=== PATIENT | female | born 1985 | race Two or more races ===

== ENCOUNTER 2017-09-28 14:10 | Outpatient (CLI) | payer BC ==
[~2017-09-28] VITALS: Ht 157.5 cm; Wt 68.9 kg
[2017-09-28 14:25] VITALS: BP 98/63
[2017-09-28] MEDS ORDERED: COUMADIN6 MG ORAL (15:33)
--- NOTE | 2017-09-28 15:38 | GI Initial Consult Note ---
History of Present Illness General Date patient seen: Sep 28, 2017 Time patient seen: 15:31 Referring physician: [facility] Reason for Consultation: Pancreatic mass Present Illness HPI 32 year female found to have a pancreatic mass on recent imaging study presents today c/o of RLQ/Epigastric pain x 6 months with occasional nausea. In addition , c/o of constipation. Denies any unintentional weight loss or changes in dietary habits. No history of endoscopy / colonoscopy. Patient was on coumadin for PE, but dc one week ago. Home Meds Reported Medications Warfarin Sod* (COUMADIN*) 6 Mg Tablet, 6 MG ORAL DAILY, TAB 09/28/17 Med list reviewed/reconciled: Yes Allergies: Coded Allergies: No Known Allergies (Unverified , 09/28/17) Patient History History Provided By: Patient, Medical Record [facility] Narrative Pulmonary Embolism 2015 depression ?ITP Past Surgical History: lipoma left back breast augmentation x 4 Family History Narrative Mother >> DM, DVT Social History: Reports: other - caffeine use; Denies: smoking, alcohol use, drug use Review of Systems All Other Systems: limited Physical Exam T 98.1 BP 98/62 P 81 98 RA HT 5'2 WT 152 lbs Sp02 EP Interpretation: reviewed, normal General Appearance: well appearing, no apparent distress, alert Head: normocephalic EENT: PERRL/EOMI, normal ENT inspection Neck: supple Respiratory: normal breath sounds, no respiratory distress Cardiovascular: normal rate Gastrointestinal: normal inspection, non tender, soft, normal bowel sounds, non -distended Rectal: deferred Genitourinary: no CVA tenderness Musculoskeletal: normal inspection, back normal Neurologic: normal inspection, alert, oriented x3, responsive Psychiatric: normal inspection, judgement/insight normal, memory normal Skin: normal inspection, normal color, no rash, warm/dry, palpation normal, well hydrated Lymphatic: normal inspection, no adenopathy GI: Plan Problems: (1) Pancreatic mass (2) Depression (3) Constipation (4) Nausea (5) Lipoma (6) History of ITP Plan plan for EUS required to evaluate pancreatic mass, will require prior authorization rx for labs given to patient linzess [address] Do. Thank you for this patient referral. Kellie Sanchez N.P. Sep 28, 2017 15:38
== END 2017-09-28 14:45 | disposition home or self-care (01) ==
LOC: PAN 14:10
DX: R11.0 Nausea (principal); F32.9 Major depressive disorder, single episode, unspecified; K59.00 Constipation, unspecified; Z79.01 Long term (current) use of anticoagulants; Z86.711 Personal history of pulmonary embolism
CPT/HCPCS: 99201

== ENCOUNTER 2017-11-27 07:21 | Day surgery (SDC) | payer BC ==
[~2017-11-27] VITALS: Ht 157.5 cm; Wt 70.3 kg
[2017-11-27] VITALS (11 sets, daily range): BP systolic 103–125; BP diastolic 53–83
--- NOTE | 2017-11-27 06:25 | Anethesia Preoperative Eval ---
Anesthesia Pre-op PMH/ROS General Date of Evaluation: Nov 27, 2017 Time of Evaluation: 06:22 Anesthesiologist: mitul ASA Score: ASA 3 Mallampati Score Class I : Soft palate, uvula, fauces, pillars visible Class II: Soft palate, uvula, fauces visible Class III: Soft palate, base of uvula visible Class IV: Only hard plate visible Mallampati Classification: Class II Surgeon: nisa Diagnosis: pancreatic mass Surgical Procedure: eus Anesthesia History: none Social History: smoking - former smoker Family History: no anesthesia problems Allergies: Coded Allergies: ACETAMINOPHEN (Verified Adverse Reaction, Intermediate, vomiting, 11/27/17) HYDROCODONE (Verified Adverse Reaction, Intermediate, vomiting, 11/27/17) Medications: see eMAR Past Medical History Pulmonary: Reports: other - pulmonary embolism Neurologic/Psychiatric: Reports: depression/anxiety Hematology/Immune: Reports: other - hx/o ITP Musculoskeletal/Integumentary: Reports: other - lipoma Other: obesity PSxH Narrative: breast augmentation Anesthesia Pre-op Phys. Exam Physician Exam Constitutional: NAD Neurologic: CN 2-12 intact Cardiovascular: RRR Respiratory: CTA Gastrointestinal: S/NT/ND Airway Exam Mallampati Score: Class II MO: full Neck: supple TMD: 2fb ROM: full Teeth: intact Anesthesia Pre-op A/P Labs Labs Test 11/27/17 07:30 11/27/17 09:25 Urine HCG, Qualitative Negative (NEGATIVE) Risk Assessment & Plan Assessment: asa3 Plan: mac Status Change Before Surgery: No Pre-Antibiotics Drug: Marisela Lora MD Nov 27, 2017 06:25
[~2017-11-27 07:21] MED LIST: Atropine Inj 1mg/10ml Syr IV PRN; COUMADIN6 MG ORAL; DiphenhydrAMINE 50mg/ml Inj IVP PRN; Midazolam 2mg/2ml Inj IVP PRN; fentaNYL 100 mcg/2 mL IV PRN
[2017-11-27] MEDS ORDERED: Propofol 200mg/20ml IV ONE (07:22)
[2017-11-27] MEDS ORDERED: Lidocaine 1% MPF 10mg/ml 5ml ONE (07:22)
--- NOTE | 2017-11-27 08:25 | Pre-Procedure Note/Attestation ---
Pre-Procedure Note/Attestation Complete Prior to Procedure Planned Procedure: not applicable Procedure Narrative: eus Indications for Procedure Pre-Operative Diagnosis: pancreatic mass Attestation I attest that I discussed the nature of the procedure; its benefits; risks and complications; and alternatives (and the risks and benefits of such alternatives ), prior to the procedure, with the patient (or the patient's legal patient financial representative). I attest that, if there was a reasonable possibility of needing a blood transfusion, the patient (or the patient's legal patient financial representative) was given the [facility] standardized written summary, pursuant to the Silviano Tejinder Blood Safety Act ([place] Health and Safety Code # 1645, as amended). I attest that I re-evaluated the patient just prior to the surgery and that there has been no change in the patient's H&P, except as documented below: Julián Do MD Nov 27, 2017 08:25
--- NOTE | 2017-11-27 08:25 | Short Stay Surgery H&P ---
History of Present Illness History of Present Illness Chief Complaint see office consult notes HPI Ivonne Weiss is a 32 year old female who was admitted on for Pancreatic Mass Patient History Allergies: Coded Allergies: ACETAMINOPHEN (Verified Adverse Reaction, Intermediate, vomiting, 11/27/17) HYDROCODONE (Verified Adverse Reaction, Intermediate, vomiting, 11/27/17) Medication History Scheduled Warfarin Sod* (Coumadin*), 6 MG ORAL DAILY, (Reported) Physical Exam Vital Signs Last Vital Signs Date Time Temp Pulse Resp B/P (MAP) Pulse Ox O2 Delivery O2 Flow Rate FiO2 11/27/17 08:06 98.4 67 18 119/83 100 Room Air 98.4 Labs Laboratory Tests Test 11/27/17 07:30 Urine HCG, Qualitative Negative (NEGATIVE) Plan Attestation Are the patient's medical conditions optimized for surgery? Julián Do MD Nov 27, 2017 08:25
[2017-11-27] MEDS ORDERED: Heplock Flush 100 units/ml 3 ml syr ONE (09:05)
--- NOTE | 2017-11-27 09:45 | Endoscopy Procedure Note ---
Endoscopy Procedure Note General Indication for Procedure: panc lesion Procedures Performed: other - EUS Operative Findings/Diagnosis: panc cyst Specimen: yes Pt Tolerated Procedure Well: Yes Estimated Blood Loss: none Anesthesia Anesthesiologist: mitul Anesthesia: MAC Inserted Devices Implant(s) used?: No GI Core Measures 50 yrs or older w/o bx or poly: Not Applicable 10yrs. F/U not recommended: Not Applicable Julián Do MD Nov 27, 2017 09:45
--- NOTE | 2017-11-27 10:49 | Immediate Post-Op Evaluation ---
Immediate Post-Op Evalulation Immediate Post-Op Evalulation Procedure: eus w/fna Date of Evaluation: Nov 27, 2017 Time of Evaluation: 09:55 IV Fluids: 0.9ns 350ml Blood Products: none Estimated Blood Loss: negligible Blood Pressure Systolic: 110 Blood Pressure Diastolic: 56 Pulse Rate: 66 Respiratory Rate: 18 O2 Sat by Pulse Oximetry: 100 Temperature (Fahrenheit): 97.5 Pain Score (1-10): 0 Nausea: No Vomiting: No Complications none Patient Status: awake, reacts, patent Hydration Status: adequate Drug: Marisela Lora MD Nov 27, 2017 10:49
--- NOTE | 2017-11-27 10:51 | 48 Hour Post Anesthesia Eval ---
Post Anesthesia Evaluation Procedure: eus w/fna Date of Evaluation: Nov 27, 2017 Time of Evaluation: 09:57 Blood Pressure Systolic: 109 0: 61 Pulse Rate: 64 Respiratory Rate: 18 Temperature (Fahrenheit): 97.5 O2 Sat by Pulse Oximetry: 100 Airway: patent Nausea: No Vomiting: No Pain Intensity: 0 Hydration Status: adequate Cardiopulmonary Status: stable Mental Status/LOC: patient returned to baseline Post-Anesthesia Complications: none Follow-up care needed: N/A Marisela Toscano MD Nov 27, 2017 10:51
--- NOTE | 2017-11-27 11:45 | Procedure Note ---
DATE OF PROCEDURE: 11/27/2017 SURGEON: Julián Do M.D. ANESTHESIOLOGIST: Dr. Fonseca. PROCEDURE: Endoscopic ultrasound with fine-needle aspiration. ANESTHESIA: Per Dr. Fonseca. INSTRUMENT: Olympus adult EUS radial and linear scope. INDICATION: Pancreatic lesion. The procedure, risks, benefits, and possible consequences, including hemorrhage, aspiration, perforation and infection, and alternative treatments, were explained to the patient/legal guardian by Dr. Julián Do and the patient/legal guardian understood and accepted these risks. DESCRIPTION OF PROCEDURE: After informed consent was obtained and the patient was adequately sedated, the EUS scope was advanced from mouth into the second portion of the duodenum and pancreatic parenchyma was carefully examined through the gastroduodenal mucosa. Starting scanning at GE junction, first celiac axis was evaluated and there was no obvious celiac axis lymphadenopathy. Left adrenal gland was seen without any obvious mass or adenoma. Then, the scope was advanced a little more gently into the stomach. Pancreatic body and tail was carefully examined. There was no any pathology seen in the pancreatic body or tail. Then, the scope was advanced to the duodenal bulb and second portion of duodenum where the head of the pancreas and uncinate process was examined. The patient had multiple cysts in the head and uncinate process, the largest one was roughly about a little over 3 cm. There were also multiple other smaller ones. These were all located in the uncinate/head of the pancreas. No gallbladder wall thickening. No gallstones. No obvious mass. This cyst seems to be with no wall thickening, no filling defects in the cysts. At this time, we switched to linear scope. Using FNA scope, we put a 25-gauge needle into the cyst and aspirated dark brownish-colored fluid which looked like coffee-colored fluid from this cyst. Roughly about 10 mL of the fluid was aspirated and was given to pathologist for evaluation for CEA, amylase, and also for mucin stain. The patient tolerated the procedure very well without any complication. SUMMARY OF FINDINGS: Large pancreatic cyst in the head and uncinate process, the largest one 3 cm and multiple smaller than that, all accumulated in the uncinate and head of the pancreas. Status post FNA with a 25-gauge needle and aspiration of adequate fluid. This is most likely from the look and from the aspirate fluid, it looks like a pseudocyst, but we will send the fluid for pathology for evaluation of CEA, amylase, and also for mucin stain. RECOMMENDATIONS: Follow results and make further recommendation. Julián Do M.D. DR: Pa JOB#: [id number] CC:
== END 2017-11-27 11:20 | disposition home or self-care (01) ==
LOC: GAS 07:21
DX: K86.2 Cyst of pancreas (principal); Z88.6 Allergy status to analgesic agent; Z79.01 Long term (current) use of anticoagulants; F32.9 Major depressive disorder, single episode, unspecified; F41.9 Anxiety disorder, unspecified; Z87.891 Personal history of nicotine dependence
CPT/HCPCS: 43242; 81025; 82150; 82378; J1642; J2704; 94003; 94150

== ENCOUNTER 2018-01-09 11:12 | Outpatient (CLI) | payer BC ==
[~2018-01-09 11:12] MED LIST changes: -Atropine Inj 1mg/10ml Syr IV PRN; -DiphenhydrAMINE 50mg/ml Inj IVP PRN; -Midazolam 2mg/2ml Inj IVP PRN; -fentaNYL 100 mcg/2 mL IV PRN
[2018-01-09 13:44] VITALS: BP 112/74
--- NOTE | 2018-01-09 16:42 | GI Progress Note ---
Assessment/Plan Problems: (1) Abdominal pain ICD Codes: R10.9 - Unspecified abdominal pain SNOMED: 74105636 (2) Pancreatic mass ICD Codes: K86.9 - Disease of pancreas, unspecified SNOMED: 580449943 (3) Depression ICD Codes: F32.9 - Major depressive disorder, single episode, unspecified SNOMED: 93923823 (4) Lipoma ICD Codes: D17.9 - Benign lipomatous neoplasm, unspecified SNOMED: 42464449 (5) Constipation ICD Codes: K59.00 - Constipation, unspecified SNOMED: 89574474 (6) Nausea ICD Codes: R11.0 - Nausea SNOMED: 631923592 (7) History of ITP ICD Codes: Z86.2 - Personal history of diseases of the blood and blood-forming organs and certain disorders involving the immune mechanism SNOMED: 490863002 Status: stable Status Narrative Seen with Dr. Do. Assessment/Plan SUMMARY OF FINDINGS reviewed with patient: Large pancreatic cyst in the head and uncinate process, the largest one 3 cm and multiple smaller than that, all accumulated in the uncinate and head of the pancreas. Status post FNA with a 25 -gauge needle and aspiration of adequate fluid. This is most likely from the look and from the aspirate fluid, it looks like a pseudocyst, but we will send the fluid for pathology for evaluation of CEA, amylase, and also for mucin stain. RECOMMENDATIONS: Follow results and make further recommendation. >> negative for malignancy. repeat imaging studies x 1 year RTC prn The patient was seen and examined at bedside and all new and available data was reviewed in the patients chart. I agree with the above findings, impression and plan. (Patient seen earlier today. Signature stamp does not reflect patient encounter time.). - Julián Do MD Subjective Gastrointestinal/Abdominal: Reports: no symptoms Subjective had abdominal pain 3 weeks ago, sent to ED with unremarkable findings had abdominal discomfort vs pain vs spasm twice a week after procedure Objective Last 24 Hour Vital Signs Date Time Temp Pulse Resp B/P (MAP) Pulse Ox O2 Delivery O2 Flow Rate FiO2 01/09/18 13:44 98.4 69 16 112/74 99 98.4 General Appearance: WD/WN, no apparent distress, alert Cardiovascular: normal rate Respiratory/Chest: normal breath sounds, no respiratory distress Abdominal Exam: normal bowel sounds, non tender, soft Extremities: normal range of motion, non-tender Felipa Sanchez NP Jan 09, 2018 16:42
== END 2018-01-09 11:45 | disposition home or self-care (01) ==
LOC: PAN 11:12
DX: R10.9 Unspecified abdominal pain (principal); K86.9 Disease of pancreas, unspecified; F32.9 Major depressive disorder, single episode, unspecified; D17.9 Benign lipomatous neoplasm, unspecified; K59.00 Constipation, unspecified; R11.0 Nausea; Z86.2 Personal history of diseases of the blood and blood-forming organs and certain disorders involving the immune mechanism
CPT/HCPCS: 99212